=== PATIENT | male | born 1970 | race Caucasian/White ===

== ENCOUNTER 2017-10-01 11:25 | Observation (INO) | payer OTHER ==
[2017-10-01 12:44] LABS: Absolute Lymphocytes (CBC) 2.7 K/uL (0.7-4.9); Absolute Monocytes 0.9 K/uL (0.1-1.3); Absolute Neutrophil 5.7 K/uL (1.8-8.0); Basophils % 0.6 % (0-1.3); Eosinophils % 2.2 % (0-4.4); Hematocrit 44.1 % (39.6-49.0); Lymphocytes % 28.2 % (15.3-44.8); MCH 29.2 pg (27.0-35.0); MCV 87.6 fL (80-100); MPV 7.7 fL (7.6-11.3); Monocytes % 9.7 % (3.3-12.3); RBC Red Blood Cell Count 5.03 M/uL (4.33-5.43)
[2017-10-01 12:47] LABS: Protime INR 0.95
--- NOTE | 2017-10-01 12:57 | RAD REPORT ---
EXAM DESCRIPTION: RAD - Chest Single View - 10/01/2017 12:48 pm CLINICAL HISTORY: CHEST PAIN Chest pain. COMPARISON: No comparisons FINDINGS: Portable technique limits examination quality. The lungs are underinflated resulting in mild vascular crowding. No focal infiltrate seen. The heart is normal in size. No displaced fractures. IMPRESSION: Underinflated lungs.
[2017-10-01 13:07] LABS: ALT/SGPT 39 U/L (12-78); AST/SGOT 31 U/L (15-37); Alkaline Phosphatase 104 U/L (45-117); BUN Blood Urea Nitrogen 12 mg/dL (7-18); Bicarbonate 29 mmol/L (21-32); Bilirubin Direct < 0.1 mg/dL (0-0.2); Bilirubin Total 0.5 mg/dL (0.2-1.0); Glucose Level 101 mg/dL (74-106); Magnesium 2.2 mg/dL (1.8-2.4); NT PRO-BNP 59 pg/mL (<125); Protein, Total 7.8 g/dL (6.4-8.2); Sodium Level 137 mmol/L (136-145)
--- NOTE | 2017-10-01 14:59 | ER ---
Nurse's Notes [facility] Name: Yousuf Carreon Age: 47 yrs Sex: Male : 1970 Arrival Date: 10/01/2017 Time: : Bed 20 Private MD: Diagnosis: Chest pain, unspecified Presentation: 10/01 11:31 Presenting complaint: Patient states: left sided chest pain that radiates under left sv armpit that has been intermittent for about a month with SOB. Pt reports today he went to the nurse at work and BP was 200s/100s. Pt also reports lethargy for 2-3 weeks. Transition of care: patient was not received from another setting of care. Onset of symptoms was August 2017. Care prior to arrival: None. 11:31 Method Of Arrival: Wheelchair sv 11:31 Acuity: MARIA LUISA 3 sv 12:47 Risk Assessment: Do you want to hurt yourself or someone else? Patient reports no ph desire to harm self or others. Initial Sepsis Screen: Does the patient meet any 2 criteria? No. Patient's initial sepsis screen is negative. Does the patient have a suspected source of infection? No. Patient's initial sepsis screen is negative. Historical: - Allergies: 11:44 Morphine; sv - Home Meds: 11:44 Ibuprofen Oral [Active]; sv - PMHx: 11:44 Sleep Apnea; Asthma; Gout; sv - PSHx: 11:44 Knee surgery; hand; sv - Immunization history:: Adult Immunizations up to date. - Social history:: Smoking status: Patient/guardian denies using tobacco. - Ebola Screening: : No symptoms or risks identified at this time. Screenin:40 Abuse screen: Denies threats or abuse. Denies injuries from another. Nutritional ph screening: No deficits noted. Tuberculosis screening: No symptoms or risk factors identified. Fall Risk None identified. Assessment: 11:45 General: Appears in no apparent distress. comfortable, well groomed, Behavior is calm, ph cooperative, appropriate for age, Denies fever, feeling ill. Pain: Complains of pain in anterior aspect of left upper chest and left breast Pain radiates to left axilla Pain began 2-3 days ago. Is intermittent. Neuro: Level of Consciousness is awake, alert, obeys commands, Oriented to person, place, time, situation. Cardiovascular: Reports chest pain, shortness of breath, Denies diaphoresis, fatigue, nausea, vomiting, Capillary refill < 3 seconds Patient's skin is warm and dry. Respiratory: Reports shortness of breath at rest Airway is patent Respiratory effort is even, unlabored, Respiratory pattern is regular, symmetrical, Breath sounds are clear bilaterally. the patient has mild shortness of breath Denies cough, pain with respiration, pain with cough. GI: No signs and/or symptoms were reported involving the gastrointestinal system. Derm: Skin is intact, is healthy with good turgor, Skin is pink, warm \T\ dry. Musculoskeletal: Circulation, motion, and sensation intact. Range of motion: intact in all extremities. 13:00 Reassessment: Patient appears in no apparent distress at this time. Patient and/or ph family updated on plan of care and expected duration. Pain level reassessed. Patient is alert, oriented x 3, equal unlabored respirations, skin warm/dry/pink. Pt resting comfortably, rates pain 2/10 at this time, states that he does not require any pain medication at this time, VSS. 15:00 Reassessment: Patient appears in no apparent distress at this time. Patient and/or ph family updated on plan of care and expected duration. Pain level reassessed. Patient is alert, oriented x 3, equal unlabored respirations, skin warm/dry/pink. Hospitalist at bedside to speak w/ pt. 16:30 Reassessment: Patient appears in no apparent distress at this time. Patient and/or ph family updated on plan of care and expected duration. Pain level reassessed. Patient is alert, oriented x 3, equal unlabored respirations, skin warm/dry/pink. attempted to call report, receiving nurse unavailable, will call back in 10 min. 16:50 Reassessment: Report called Patience, RN, pt waiting to be taken to inpatient room. ph Vital Signs: 11:31 BP 153 / 75; Pulse 87; Resp 18; Temp 96.9; Pulse Ox 99% on R/A; Weight 120.2 kg; Height sv 5 ft. 8 in. (172.72 cm); Pain 2/10; 12:45 BP 158 / 97; Pulse 68; Resp 18; Pulse Ox 99% on R/A; ph 11:31 Body Mass Index 40.29 (120.20 kg, 172.72 cm) sv ED Course: 11:26 Patient arrived in ED. as 11:31 Arm band placed on right wrist. Patient placed in an exam room, on a stretcher. sv 11:35 Bill Urrutia PA is PHCP. jr8 11:35 Sai Campbell MD is Attending Physician. jr8 11:43 Triage completed. sv 12:23 Brenda Alejandro, RN is Primary Nurse. ph 12:35 EKG done, by business office technician. reviewed by Bill JOHNSON. at1 12:36 Initial lab(s) drawn, by nv, sent to lab. Inserted saline lock: 20 gauge in right ph antecubital area, using aseptic technique. Blood collected. Patient maintains SpO2 saturation greater than 95% on room air. 12:40 Patient has correct armband on for positive identification. Placed in gown. Bed in low ph position. Call light in reach. Side rails up X 1. powerhouse mechanic on. Pulse ox on. NIBP on. 12:49 XRAY Chest (1 view) In Process Unspecified. EDMS 14:58 Flavio Rowley DO is Hospitalizing Provider. jr8 17:13 No provider procedures requiring assistance completed. Patient admitted, IV remains in ph place. Administered Medications: 13:24 Drug: Aspirin Chewable Tablet 324 mg Route: PO; ph 17:15 Follow up: Response: No adverse reaction ph Outcome: 14:59 Decision to Hospitalize by Provider. jr8 17:13 Admitted to Med/surg accompanied by tech, family with patient, via wheelchair, with ph chart, Report called to Patience DAY 17:13 Condition: stable 17:15 Patient left the ED. ph Signatures: Dispatcher [employer] EDMS Lucero Molina, RN RN Vidhi Bowser Josh, PA PA jr8 Jazmin gurrola, clinical documentation improvement specialist EKG Tat1 Brenda Alejandro RN RN ph
--- NOTE | 2017-10-01 14:59 | EDPHYS ---
Physician Documentation [facility] Name: Yousuf Carreon Age: 47 yrs Sex: Male : 1970 Arrival Date: 10/01/2017 Time: : Bed 20 Private MD: ED Physician Sai Campbell HPI: 10/01 11:51 This 47 yrs old Male presents to ER via Wheelchair with complaints of High jr8 Blood Pressure, Chest Pain. 11:51 The patient or guardian reports chest pain that is located primarily in the anterior jr8 chest wall, left. Onset: gradually, 1 week(s) ago, and became worse and became persistent. The pain does not radiate. Associated signs and symptoms: Pertinent positives: near-syncope, shortness of breath. The chest pain is described as burning. Duration: The patient or guardian reports multiple episodes, that are intermittent, that wax and wane, the episodes last approximately 30 minute(s). Modifying factors: The symptoms are alleviated by nothing. the symptoms are aggravated by exertion. Severity of pain: At its worst the pain was moderate in the emergency department the pain has improved mildly. The patient has not experienced similar symptoms in the past. The patient has not recently seen a physician. Historical: - Allergies: 11:44 Morphine; sv - Home Meds: 11:44 Ibuprofen Oral [Active]; sv - PMHx: 11:44 Sleep Apnea; Asthma; Gout; sv - PSHx: 11:44 Knee surgery; hand; sv - Immunization history:: Adult Immunizations up to date. - Social history:: Smoking status: Patient/guardian denies using tobacco. - Ebola Screening: : No symptoms or risks identified at this time. ROS: 11:51 Eyes: Negative for injury, pain, redness, and discharge, ENT: Negative for injury, jr8 pain, and discharge, Neck: Negative for injury, pain, and swelling, Abdomen/GI: Negative for abdominal pain, nausea, vomiting, diarrhea, and constipation, Back: Negative for injury and pain, MS/Extremity: Negative for injury and deformity, Skin: Negative for injury, rash, and discoloration, Neuro: Negative for headache, weakness, numbness, tingling, and seizure. 11:51 Cardiovascular: Positive for chest pain, Negative for edema, orthopnea, palpitations, paroxysmal nocturnal dyspnea. 11:51 Respiratory: Positive for shortness of breath, Negative for cough, dyspnea on exertion, hemoptysis, orthopnea, pleurisy, sputum production, wheezing. Exam: 11:51 Eyes: Pupils equal round and reactive to light, extra-ocular motions intact. Lids and jr8 lashes normal. Conjunctiva and sclera are non-icteric and not injected. Cornea within normal limits. Periorbital areas with no swelling, redness, or edema. ENT: Nares patent. No nasal discharge, no septal abnormalities noted. Tympanic membranes are normal and external auditory canals are clear. Oropharynx with no redness, swelling, or masses, exudates, or evidence of obstruction, uvula midline. Mucous membranes moist. Neck: Trachea midline, no thyromegaly or masses palpated, and no cervical lymphadenopathy. Supple, full range of motion without nuchal rigidity, or vertebral point tenderness. No Meningismus. Chest/axilla: Normal chest wall appearance and motion. Nontender with no deformity. No lesions are appreciated. Cardiovascular: Regular rate and rhythm with a normal S1 and S2. No gallops, murmurs, or rubs. Normal PMI, no JVD. No pulse deficits. Respiratory: Lungs have equal breath sounds bilaterally, clear to auscultation and percussion. No rales, rhonchi or wheezes noted. No increased work of breathing, no retractions or nasal flaring. Abdomen/GI: Soft, non-tender, with normal bowel sounds. No distension or tympany. No guarding or rebound. No evidence of tenderness throughout. Back: No spinal tenderness. No costovertebral tenderness. Full range of motion. Skin: Warm, dry with normal turgor. Normal color with no rashes, no lesions, and no evidence of cellulitis. MS/ Extremity: Pulses equal, no cyanosis. Neurovascular intact. Full, normal range of motion. Neuro: Awake and alert, GCS 15, oriented to person, place, time, and situation. Cranial nerves II-XII grossly intact. Motor strength 5/5 in all extremities. Sensory grossly intact. Cerebellar exam normal. Normal gait. Vital Signs: 11:31 BP 153 / 75; Pulse 87; Resp 18; Temp 96.9; Pulse Ox 99% on R/A; Weight 120.2 kg; Height sv 5 ft. 8 in. (172.72 cm); Pain 2/10; 12:45 BP 158 / 97; Pulse 68; Resp 18; Pulse Ox 99% on R/A; ph 11:31 Body Mass Index 40.29 (120.20 kg, 172.72 cm) sv MDM: 11:35 Patient medically screened. 8 14:57 HEART Score: History: Moderately Suspicious (1), ECG: Normal (0), Age: > 45 and < 65 jr8 years (1), Risk Factors: 1 or 2 risk factors (1), [Hypertension] [Obesity] Troponin: < or = 1 x Normal Limit (0). The patient was given aspirin in the Emergency Department. Data reviewed: vital signs, nurses notes, lab test result(s), EKG, radiologic studies, plain films, and as a result, I will admit patient. Data interpreted: Pulse oximetry: on room air is 99 %. Interpretation: normal. Counseling: I had a detailed discussion with the patient and/or guardian regarding: the historical points, exam findings, and any diagnostic results supporting the discharge/admit diagnosis, lab results, radiology results, the need for further work-up and treatment in the hospital. 10/01 11:35 Order name: Basic Metabolic Panel; Complete Time: 13:20 10/01 11:35 Order name: CBC with Diff; Complete Time: 12:54 10/01 11:35 Order name: LFT's; Complete Time: 13:20 10/01 11:35 Order name: Magnesium; Complete Time: 13:20 10/01 11:35 Order name: NT PRO-BNP; Complete Time: 13:20 10/01 11:35 Order name: PT-INR; Complete Time: 12:54 10/01 11:35 Order name: Troponin (emerg Dept Use Only); Complete Time: 13:20 10/01 11:35 Order name: XRAY Chest (1 view); Complete Time: 13:00 10/01 11:35 Order name: EKG; Complete Time: 11:36 10/01 11:35 Order name: Cardiac monitoring; Complete Time: 12:36 10/01 11:35 Order name: EKG - Nurse/Tech; Complete Time: 12:36 10/01 11:35 Order name: IV Saline Lock; Complete Time: 12:36 26 11:35 Order name: Labs collected and sent; Complete Time: 12:36 [facility] 10/01 11:35 Order name: O2 Per Protocol; Complete Time: 12:36 10/01 11:35 Order name: O2 Sat Monitoring; Complete Time: 12:36 Administered Medications: 13:24 Drug: Aspirin Chewable Tablet 324 mg Route: PO; ph 17:15 Follow up: Response: No adverse reaction ph Disposition: 10/02 06:58 Co-signature as Attending Physician, Sai Campbell MD I agree with the assessment and [facility] plan of care. Disposition: 10/01/17 14:59 Hospitalization ordered by Flavio Rowley for Observation. Preliminary diagnosis is Chest pain, unspecified. - Bed requested for Telemetry/MedSurg (observation). - Status is Observation. ph - Condition is Stable. - Problem is new. - Symptoms have improved. UTI on Admission? No Signatures: Dispatcher [employer] EDLucero Carrasquillo RN Nikki Wagner RN RN dw Anderson, Corey, MD MD cha Roszak, Josh, ALEX PA jr8 Brenda Alejandro RN RN ph Corrections: (The following items were deleted from the chart) 10/01 16:08 14:59 Hospitalization Ordered by Flavio Rowley DO for Observation. Preliminary diagnosis is Chest pain, unspecified. Bed requested for Telemetry/MedSurg (observation). Status is Observation. Condition is Stable. Problem is new. Symptoms have improved. UTI on Admission? No. jr8 17:15 16:08 10/01/2017 14:59 Hospitalization Ordered by Flavio Rowley DO for Observation. ph Preliminary diagnosis is Chest pain, unspecified. Bed requested for Telemetry/MedSurg (observation). Status is Observation. Condition is Stable. Problem is new. Symptoms have improved. UTI on Admission? No. dw
[2017-10-01] MEDS ORDERED: TRAMADOL HCL 50 MG TAB PO PRN (15:14)
[2017-10-01] MEDS ORDERED: MORPHINE 4 MG/ML SYR IV PRN (15:14)
[2017-10-01] MEDS ORDERED: ACETAMINOPHEN 500 MG TAB PO PRN (15:14)
[2017-10-01] MEDS ORDERED: ONDANSETRON 4 MG/2 ML VIAL IV PRN (15:14)
[2017-10-01] MEDS ORDERED: NITROGLYCERIN 0.4 MG/TAB SL PRN (15:14)
--- NOTE | 2017-10-01 15:26 | P.HP ---
Certification for Inpatient Patient admitted to: Observation With expected LOS: <2 Midnights Patient will require the following post-hospital care: None Practitioner: I am a practitioner with admitting privileges, knowledge of patient current condition, hospital course, and medical plan of care. Services: Services provided to patient in accordance with Admission requirements found in Title 42 Section 412.3 of the Code of Federal Regulations Patient History Date of Service: 10/01/17 Primary Care Provider: Dr. Albert ([place], [place]) Reason for admission: chest pain History of Present Illness: 47 yo CM presented to the ER with chest pain and dizziness. He reported some chest pain to the left side this am. He was at rest. It was a pressure like sensation. No radiation is noted. He was having some dizziness. He has had some pain to the chest over the last 1 month. It has been off and on. No nausea or vomiting noted. No SOB noted. He reports a history of sleep apnea, elevated BP in the past, reflux and gout. In the ER he was found to have elevated BP. Initial EKG was unremarkable. No significant lab abnormalities with normal Trop. Due to the nature of his history and risk factors, he will be admitted for observation. When I saw the patient in the ER he was without pain. BP improved. He does not smoke. He does report some alcohol use but on the weekends. He has TIN and compliant with CPAP. He has gout and is obese. Home medications list reviewed: Yes - Past Medical/Surgical History Diabetic: No -: Obesity -: TIN with CPAP -: Elevated BP -: GERD -: Knee surgery Psychosocial/ Personal History: He works at the [employer] - Family History Family History: Reviewed- Non-Contributory - Social History Smoking Status: Never smoker Alcohol use: Yes CD- Drugs: No Caffeine use: Yes Place of Residence: Home Review of Systems General: Unremarkable Eyes: Unremarkable ENT: Unremarkable Respiratory: Unremarkable Cardiovascular: Chest Pain, Light Headedness, As per HPI Gastrointestinal: Unremarkable Genitourinary: Unremarkable Musculoskeletal: Unremarkable Integumentary: Unremarkable Neurological: Unremarkable Lymphatics: Unremarkable Physical Examination - Physical Exam General: Alert, In no apparent distress, Oriented x3, Cooperative HEENT: Atraumatic, Normocephalic, PERRLA, Mucous membr. moist/pink Neck: Supple, No Thyromegaly Respiratory: Clear to auscultation bilaterally, Normal air movement Cardiovascular: Normal pulses, Regular rate/rhythm Gastrointestinal: Normal bowel sounds, Soft and benign, Non-distended, No ascites, No tenderness, No masses, No rebound, No guarding Musculoskeletal: No erythema, No tenderness, No warmth Integumentary: No erythema, No warmth, No cyanosis, Tenderness/swelling (mild edema to the lower ext. ) Neurological: Normal speech, Normal strength at 5/5 x4 extr, Normal tone, Normal affect Lymphatics: No axilla or inguinal lymphadenopathy - Studies Laboratory Data (last 24 hrs) 10/01/17 12:35: PT 11.2, INR 0.95 10/01/17 12:35: WBC 9.6, Hgb 14.7, Hct 44.1, Plt Count 375 10/01/17 12:35: Sodium 137, Potassium 4.0, BUN 12, Creatinine 0.90, Glucose 101 , Magnesium 2.2, Total Bilirubin 0.5, AST 31, ALT 39, Alkaline Phosphatase 104 Assessment and Plan - Problems (Diagnosis) (1) Chest pain Current Visit: Yes Status: Acute Plan: Will monitor closely. Will monitor telemetry, lab. Will check ECHO. Will consult Cardiology to assess. He may require exercise stress test to assess his heart function. Will need to get his HTN controlled. Will add medication for GERD. Will start ASA, Metoprolol, Lipitor and Protonix. Qualifiers: Chest pain type: unspecified Qualified Code(s): R07.9 - Chest pain, unspecified (2) HTN (hypertension) Current Visit: Yes Status: Acute Plan: New diagnosis. Will start Metoprolol. Qualifiers: Hypertension type: essential hypertension Qualified Code(s): I10 - Essential (primary) hypertension (3) Obstructive sleep apnea Current Visit: Yes Status: Chronic Plan: May use CPAP at night. He will have somebody bring his machine. (4) GERD (gastroesophageal reflux disease) Current Visit: Yes Status: Suspected Plan: Will add Protonix. Qualifiers: Esophagitis presence: esophagitis presence not specified Qualified Code(s) : K21.9 - Gastro-esophageal reflux disease without esophagitis (5) Gout Current Visit: Yes Status: Chronic Plan: He has been using Ibuprofen as needed. Will need to obtain home meds. Qualifiers: Gout site: unspecified site Presence of tophus: without tophus Discharge Plan: Home Plan to discharge in: 24 Hours - Advance Directives Does patient have a Living Will: No Does patient have a Durable POA for Healthcare: No - Code Status/Comfort Care Code Status Assessed: Yes Time Spent Managing Pts Care (In Minutes): 55
--- NOTE | 2017-10-01 15:38 | EKG ---
Test Date: 2017-10-01 Test Time: 12:31:06 [employer] Assistant Principal: GOLDY MEASUREMENT RESULTS: Intervals: Rate: 72 PA: 126 QRSD: 94 QT: 410 QTc: 448 [place]: P: 49 PA: 126 QRS: 61 T: 32 INTERPRETIVE STATEMENTS: Normal sinus rhythm Normal ECG No previous ECG available for comparison Electronically Signed On 10-01-17 15:38:11 CDT by Johnnie Cordero
[2017-10-01] MEDS: METOPROLOL TAR 25 MG TAB PO SCH (17:50)
[2017-10-01] MEDS: ENOXAPARIN 40 MG/0.4 ML SQ SCH (17:51)
[2017-10-01] MEDS: NA CHLORIDE 0.9% 1,000 ML IV SCH (17:51)
[2017-10-01] MEDS ORDERED: ATORVASTATIN 40 MG TAB PO SCH (21:00)
[2017-10-02 00:17] LABS: CKMB Creatine Kinase MB 2.7 ng/mL (0.3-3.6)
[2017-10-02] MEDS: NA CHLORIDE 0.9% 1,000 ML IV SCH ×2 (02:00→06:21)
[2017-10-02] MEDS: METOPROLOL TAR 25 MG TAB PO SCH (06:16)
[2017-10-02 06:18] LABS: Urine Appearance CLEAR; Urine Bilirubin NEGATIVE (NEG); Urine Blood NEGATIVE (NEG); Urine Color YELLOW; Urine Glucose NEGATIVE (NEG); Urine Protein NEGATIVE (NEG); Urine Specific Gravity 1.025 (1.005-1.030); Urine Urobilinogen 0.2 mg/dL (0.2-1.0)
[2017-10-02 06:19] LABS: Urine Microscopic Reflex NO UMIC
[2017-10-02 07:22] LABS: Absolute Lymphocytes (CBC) 2.6 K/uL (0.7-4.9); Absolute Monocytes 0.9 K/uL (0.1-1.3); Absolute Neutrophil 4.2 K/uL (1.8-8.0); Basophils % 0.7 % (0-1.3); Eosinophils % 2.7 % (0-4.4); Hematocrit 44.6 % (39.6-49.0); Lymphocytes % 32.6 % (15.3-44.8); MCH 29.1 pg (27.0-35.0); MPV 7.6 fL (7.6-11.3); Monocytes % 10.8 % (3.3-12.3); RBC Red Blood Cell Count 5.07 M/uL (4.33-5.43)
[2017-10-02] MEDS ORDERED: PANTOPRAZOLE 40MG TABLET PO SCH (07:30)
[2017-10-02 07:47] LABS: BUN Blood Urea Nitrogen 12 mg/dL (7-18); Bicarbonate 29 mmol/L (21-32); Glucose Level 106 mg/dL (74-106); HDL Cholesterol 31 mg/dL (40-60); LDL Cholesterol, Calculated ND (<130); Magnesium 2.2 mg/dL (1.8-2.4); Potassium 4.4 mmol/L (3.5-5.1); Sodium Level 139 mmol/L (136-145); Thyroid Stimulating Hormone 3.18 uIU/mL (0.36-3.74)
[2017-10-02 08:08] LABS: LDL, Direct 123 mg/dL (100-129)
[2017-10-02] MEDS ORDERED: REGADENOSON 0.4 MG/5 ML SYR IV ONE (08:34)
[2017-10-02] MEDS ORDERED: ASPIRIN EC 81 MG TAB PO SCH (09:00)
--- NOTE | 2017-10-02 09:48 | RAD REPORT ---
EXAM DESCRIPTION: NM - Rest Stress Cardiac Imaging - 10/02/2017 9:38 am CLINICAL HISTORY: Chest pain. COMPARISON: None. TECHNIQUE: The patient was administered approximately 10mCi of Tc 99m Sestamibi prior to resting SPE CT imaging of the heart. The patient was then administered approximately 30 mCi of Tc 99m Sestamibi f ollowing exercise or pharmacologic stress. Multiplanar SPECT images were reviewed. FINDINGS: Small area of diminished radiotracer activity involves the inferior left ventricular myoc ardium on rest and stress sequences. Otherwise there is uniformity of radiotracer activity involving the entire ventricular myocardium. The left ventricular ejection fraction equals 49% IMPRESSION: Small area of diminished radiotracer activity involving the inferior left ventricular m yocardium probably representing attenuation from the diaphragm. A small infarction can also have this appearance. There is no evidence of stress-induced ischemia
--- NOTE | 2017-10-02 09:49 | TREADPHA ---
DX: CHEST PAIN Date of Study: 10/02/2017 Ht: 5 9 Wt: 268 lb 0 oz Consulting Physician: MEENU MEDICATIONS: TYLENOL, ASPIRIN, LIPITOR, LOVENOX, LOPRESSOR, NITROSTAT, ZOFRAN, PROTONIX, ULTRAM HISTORY: 47 YEAR OLD MALE WITH COMPLAINTS OF CHEST PAIN. HISTORY OF HYPERTENSION AND HYPERLIPIDIMA. PHYSICIAL EXAMINATION: RESTING B.P.: 133/92 RESTING H.R.: 78 RESTING EKG: NORMAL PROTOCOL: LEXISCAN EXERCISE TIME: 3:30 B.P. AT PEAK STRESS: 128/96 IMPRESSION: LEXISCAN INJECTED. CARDIOLITE INJECTED PER PROTOCOL. SEE NUCLEAR MEDICINE REPORT. NO CHEST PAIN. NO SUPRAVENTRICULAR OR VENTRICULAR TACHYCARDIA NOTED. NON DIAGNOSTIC EKG WITH LEXISCAN STRESS.
[2017-10-02] MEDS: ENOXAPARIN 40 MG/0.4 ML SQ SCH (09:53)
--- NOTE | 2017-10-02 10:58 | P.DS ---
Admission Date: 10/01/17 Discharge Date: 10/02/17 Primary Care Provider: Dr. Albert ([place], [place]) Disposition: ROUTINE DISCHARGE Discharge Condition: GOOD Reason for Admission: chest pain Consultations: Cardiology-Dr. Cordero Procedures: Echocardiogram: Stress test: No stress-induced ischemia noted. Ejection fraction 49%. - Problems (1) Chest pain Onset Date: 10/02/17 Current Visit: Yes Status: Acute Qualifiers: Chest pain type: unspecified Qualified Code(s): R07.9 - Chest pain, unspecified (2) HTN (hypertension) Onset Date: 10/02/17 Current Visit: Yes Status: Acute Qualifiers: Hypertension type: essential hypertension Qualified Code(s): I10 - Essential (primary) hypertension (3) Obstructive sleep apnea Onset Date: 10/02/17 Current Visit: Yes Status: Chronic (4) GERD (gastroesophageal reflux disease) Onset Date: 10/02/17 Current Visit: Yes Status: Suspected Qualifiers: Esophagitis presence: esophagitis presence not specified Qualified Code(s) : K21.9 - Gastro-esophageal reflux disease without esophagitis (5) Gout Onset Date: 10/02/17 Current Visit: Yes Status: Chronic Qualifiers: Gout site: unspecified site Presence of tophus: without tophus (6) Hyperlipidemia Current Visit: Yes Status: Acute Qualifiers: Hyperlipidemia type: mixed hyperlipidemia Qualified Code(s): E78.2 - Mixed hyperlipidemia Brief History of Present Illness: 47 yo CM presented to the ER with chest pain and dizziness. He reported some chest pain to the left side this am. He was at rest. It was a pressure like sensation. No radiation is noted. He was having some dizziness. He has had some pain to the chest over the last 1 month. It has been off and on. No nausea or vomiting noted. No SOB noted. He reports a history of sleep apnea, elevated BP in the past, reflux and gout. In the ER he was found to have elevated BP. Initial EKG was unremarkable. No significant lab abnormalities with normal Trop. Due to the nature of his history and risk factors, he will be admitted for observation. When I saw the patient in the ER he was without pain. BP improved. He does not smoke. He does report some alcohol use but on the weekends. He has TIN and compliant with CPAP. He has gout and is obese. Hospital Course: Patient did well in the course of his stay. Patient was evaluated by cardiology. Echocardiogram and stress test was recommended. Cardiac stress test showed no stress-induced ischemia. Ejection fraction 49%. Patient has underlying hypertension. This is not been treated as an outpatient. Medications have been started. At discharge patient will continue with metoprolol 25 mg 1 pill twice daily and lisinopril 5 mg 1 pill daily. Patient will also continue with aspirin 81 mg daily. Recommendation is to maintain blood pressures less than 150/80. Further adjustment can be done by his PCP or cardiology. Recommendation is for the patient follow up with cardiology in 2-4 weeks to monitor his progress. Patient has hyperlipidemia. Total triglycerides 472, total cholesterol 194, LDL 123. Dietary lifestyle changes recommended. At discharge patient continue with Lipitor 40 mg daily and fenofibrate 48 mg daily. Recommendation is to recheck fast lipid panel in 4-6 weeks to monitor his progress. Further adjustment in medication can be done by his PCP. Patient may underlying GERD. At discharge patient will continue with Protonix 40 mg 1 pill once daily. Recommendation is to discontinue nonsteroidal anti- inflammatories with GI evaluation as an outpatient to further monitor and address. Patient has gout. Patient will continue with allopurinol as directed. Recommendation is to limit nonsteroidal anti-inflammatories. Patient may use Tylenol as needed for pain. Patient has sleep apnea. Patient will continue with CPAP at night. Vital Signs/Physical Exam: Temp Pulse Resp BP Pulse Ox 97.6 F 67 18 144/85 H 97 10/02/17 08:00 10/02/17 08:00 10/02/17 08:00 10/02/17 08:00 10/02/17 08:00 General: Alert, In no apparent distress, Oriented x3, Cooperative HEENT: Atraumatic, Normocephalic, Mucous membr. moist/pink Neck: Supple Respiratory: Clear to auscultation bilaterally, Normal air movement Cardiovascular: Normal pulses, Regular rate/rhythm Gastrointestinal: Normal bowel sounds, Soft and benign, Non-distended, No tenderness, No masses, No rebound, No guarding Musculoskeletal: No erythema, No tenderness, No warmth Integumentary: No tenderness/swelling, No erythema, No warmth, No cyanosis Neurological: Normal speech, Normal strength at 5/5 x4 extr, Normal tone, Normal affect Lymphatics: No axilla or inguinal lymphadenopathy Laboratory Data at Discharge: WBC 7.9 K/uL (4.3-10.9) D 10/02/17 07:06 Hgb 14.7 g/dL (13.6-17.9) 10/02/17 07:06 Hct 44.6 % (39.6-49.0) 10/02/17 07:06 Plt Count 369 K/uL (152-406) 10/02/17 07:06 PT 11.2 SECONDS (9.5-12.5) 10/01/17 12:35 INR 0.95 10/01/17 12:35 Sodium 139 mmol/L (136-145) 10/02/17 07:06 Potassium 4.4 mmol/L (3.5-5.1) 10/02/17 07:06 BUN 12 mg/dL (7-18) 10/02/17 07:06 Creatinine 1.00 mg/dL (0.55-1.3) 10/02/17 07:06 Glucose 106 mg/dL (74-106) 10/02/17 07:06 Magnesium 2.2 mg/dL (1.8-2.4) 10/02/17 07:06 Total Bilirubin 0.5 mg/dL (0.2-1.0) 10/01/17 12:35 AST 31 U/L (15-37) 10/01/17 12:35 ALT 39 U/L (12-78) 10/01/17 12:35 Alkaline Phosphatase 104 U/L (45-117) 10/01/17 12:35 Troponin I < 0.02 ng/mL (0.0-0.045) 10/02/17 07:06 Triglycerides 472 mg/dL (<150) H 10/02/17 07:06 Cholesterol 194 mg/dL (<200) 10/02/17 07:06 LDL Cholesterol Direct 123 mg/dL (100-129) 10/02/17 07:06 HDL Cholesterol 31 mg/dL (40-60) L 10/02/17 07:06 Cholesterol/HDL Ratio 6.26 10/02/17 07:06 Home Medications: Allopurinol [Zyloprim*] 300 mg PO DAILY 10/01/17 Aspirin [Aspirin EC 81 MG] 81 mg PO DAILY #90 tablet. 10/02/17 Atorvastatin Calcium [Lipitor] 40 mg PO BEDTIME #30 tab 10/02/17 Fenofibrate [Tricor*] 48 mg PO BEDTIME #30 tab 10/02/17 Lisinopril [Prinivil*] 5 mg PO DAILY #30 tab 10/02/17 Metoprolol Tartrate [Lopressor*] 25 mg PO BID 6AM 6PM #60 tab 10/02/17 Pantoprazole [Protonix Tab*] 40 mg PO DAILY #30 tab 10/02/17 New Medications: Aspirin [Aspirin EC 81 MG] 81 mg PO DAILY #90 tablet. Atorvastatin Calcium [Lipitor] 40 mg PO BEDTIME #30 tab Fenofibrate [Tricor*] 48 mg PO BEDTIME #30 tab Lisinopril [Prinivil*] 5 mg PO DAILY #30 tab Metoprolol Tartrate [Lopressor*] 25 mg PO BID 6AM 6PM #60 tab Pantoprazole [Protonix Tab*] 40 mg PO DAILY #30 tab Patient Discharge Instructions: 1. Patient will need a follow up with his PCP in 1 week to follow up this hospitalization. 2. Patient presented with chest pain. Patient evaluated by Cardiology. Echocardiogram and stress test recommended. Ejection fraction 49%. Stress test revealed no stress-induced ischemia. At discharge patient will continue with aspirin 81 mg daily. Recommendation is for the patient follow up with cardiology in 2-4 weeks to monitor his progress. 3. Patient has hypertension. Medications have been started. At discharge he will continue with metoprolol 25 mg 1 pill twice daily and lisinopril 5 mg 1 pill daily. Recommendation is to maintain blood pressures less 150/80. Further adjustment can be done by his PCP. 4. Patient has hyperlipidemia. Medications have been started. At discharge he will continue with Lipitor 40 mg 1 pill once daily and fenofibrate 48 mg 1 pill daily. Recommendation is to recheck fasting lipid panel in 4-6 weeks to monitor his progress. Further adjustment in medication can be done by his PCP. 5. Patient likely has GERD. Patient will continue with Protonix 40 mg 1 pill once daily. Patient may benefit with GI evaluation as an outpatient. Patient is to limit nonsteroidal anti-inflammatories. 6. Patient has obstructive sleep apnea. Patient continue with CPAP at night. 7. Patient has gout. Patient continue with Allopurinol daily. Patient is to limit nonsteroidal anti-inflammatories. Patient may use Tylenol as needed for pain. 8. Lifestyle modification education will be provided. 9. Patient may return to work on Saturday. Diet: AHA Activity: Ad susan Time spent managing pt's care (in minutes): 55
--- NOTE | 2017-10-02 12:24 | ECHO ---
HEIGHT: 5 ft 9 in WEIGHT: 268 lb 0 oz DATE OF STUDY: 10/02/[address]: Flavio Rowley DO 2-DIMENSIONAL: YES M.MODE: YES DOPPLER: YES COLOR FLOW: YES TDS: NO PORTABLE: NO DEFINITY: NO BUBBLE STUDY: NO DIAGNOSIS: CHEST PAIN/ NEW HYPERTENSION CARDIAC HISTORY: CATHERIZATION: NO SURGERY: NO PROSTHETIC VALVE: NO PACEMAKER: NO MEASUREMENTS (cm) DIASTOLIC (NORMALS) SYSTOLIC (NORMALS) IVSd 0.9 (0.6-1.2) LA Diam 3.6 (1.9-4.0) LVEF 71% LVIDd 5.0 (3.5-5.7) LVIDs 3.0 (2.0-3.5) %FS 40% LVPWd 1.0 (0.6-1.2) Ao Diam 2.7 (2.0-3.7) 2 DIMENSIONAL ASSESSMENT: RIGHT ATRIUM: NORMAL LEFT ATRIUM: NORMAL RIGHT VENTRICLE: NORMAL LEFT VENTRICLE: NORMAL TRICUSPID VALVE: NORMAL MITRAL VALVE: NORMAL PULMONIC VALVE: NORMAL AORTIC VALVE: NORMAL PERICARDIAL EFFUSION: NONE AORTIC ROOT: NORMAL LEFT VENTRICULAR WALL MOTION: NORMAL. DOPPLER/COLOR FLOW: NORMAL. COMMENTS: NORMAL 2D ECHO WITH DOPPLER. TECHNOLOGIST: RACHEL WATSON
--- NOTE | 2017-10-02 13:04 | CON ---
History Of Present Illness: Mr. Carreon came to the hospital with hypertension. He is noted to the nurse at work and to Dr. Campbell that for a month he had been having intermittent pain in the left p ectoral muscle. It is a point tenderness. No nausea, vomiting, sweating, shortness of breath. Not related to exertion. When he feels it, he presses on it and seems to go away in a few minutes. As i t has come and gone, it has been random. It has not been related to time of day, meals, level of phy sical activity, or emotional distress. He has never had myocardial infarction or stroke. He does no t have diabetes. He apparently has untreated hypertension, although some of his blood pressures this morning are quite good. Yesterday, one of his blood pressures was 200/100. Allergies: HE REPORTS AN ALLERGY TO MORPHINE. Medications: Outpatient medications are allopurinol and ibuprofen as needed. He has gout. He thinks he may have dyslipidemia, but he has never taken cholesterol medicines. A ch olesterol test was done today. Total cholesterol 194, direct LDL 123, HDL 31, triglycerides 472. Social History: He uses no tobacco. Physical Examination: Vital signs: Five feet and 9 inches, 268 pounds. HEENT: Normal. Neck: Carotids, no bruit. Lungs: Clear. Cardiac exam: Normal. Extremities: Normal. Laboratory Data: Two of his troponins were normal, one was 0.06. The normal ones occurred both befo re and after the one that was 0.06. His EKG is normal. He has had a nuclear stress test done and e results are pending. Recommendations: I think the patient needs to lose weight. Following an appropriate zero sugar, low -carbohydrate diet. Be on lipid medications. If the stress test is abnormal, I will recommend a car diac cath. JEREMÍAS/INDRA Voice ID: [id number] Report ID: [id number]
[2017-10-02] MEDS ORDERED: FENOFIBRATE 48 MG TAB PO SCH (21:00)
[2017-10-03] MEDS ORDERED: ALLOPURINOL 300 MG TAB PO SCH (09:00)
[2017-10-03] MEDS ORDERED: LISINOPRIL 5 MG TAB PO SCH (09:00)
== END 2017-10-02 12:25 | disposition home or self-care (01) ==
LOC: ER 11:25 → ERHOLD 14:59 → 4TH 16:38
PROVIDERS: ADMIT Physician Assistant; ATTEND Family Medicine
DX: R07.9 Chest pain, unspecified (principal); I10 Essential (primary) hypertension; G47.33 Obstructive sleep apnea (adult) (pediatric); M1A.9XX0 Chronic gout, unspecified, without tophus (tophi); E78.2 Mixed hyperlipidemia
CPT/HCPCS: 36415; 71045; 78452; 80048; 80061; 80076; 81003; 82550; 82553; 83735; 83880; 84439; 84443; 84484; 85025; 85610; 93005; 93017; 93306; 99285; A9500; G0378; J1650; J2785; J7030